=== PATIENT | female | born 1950 | race Caucasian/White ===

== ENCOUNTER 2020-05-15 15:26 | Inpatient (IN) | payer MEDICARE, BC ==
[~2020-05-15] VITALS: Ht 152.4 cm; Wt 111.3 kg
[2020-05-15 16:02] LABS: BASOPHILS # (AUTO) 0.1 X10'3 (0-0.2); BASOPHILS % (AUTO) 0.9 % (0-1); EOSINOPHILS # (AUTO) 0.2 X10'3 (0-0.9); EOSINOPHILS % (AUTO) 3.4 % (0-6); HEMATOCRIT 43.5 % (35.0-45.0); HEMOGLOBIN 14.9 g/dl (12.0-16.0); LYMPHOCYTES % (AUTO) 33.3 % (21-51); MEAN CORPUSCULAR HEMOGLOBIN 33.3 PG (27.0-31.0); MEAN CORPUSCULAR HGB CONC 34.2 g/dL (33.0-36.5); MEAN CORPUSCULAR VOLUME 97.4 FL (78-98); MEAN PLATELET VOLUME 7.2 FL (7.4-10.4); MONOCYTES # (AUTO) 0.5 X10'3 (0-0.9); MONOCYTES % (AUTO) 8.6 % (2-12); NEUTROPHILS # (AUTO) 3.2 X10'3 (1.8-7.7); NEUTROPHILS % (AUTO) 53.8 % (42-75); PLATELET COUNT 258 X10'3 (140-440); RED BLOOD COUNT 4.47 X10'6 (4.20-5.60); RED CELL DISTRIBUTION WIDTH 13.4 % (11.5-14.5); WHITE BLOOD COUNT 5.9 X10'3 (4.5-11.0)
[2020-05-15 16:15] LABS: PARTIAL THROMBOPLASTIN TIME 26 SECONDS (22-32)
[2020-05-15 16:17] LABS: ALANINE AMINOTRANSFERASE 28 U/L (12-78); ALBUMIN 3.7 G/DL (3.4-5.0); ALBUMIN/GLOBULIN RATIO 1.1 (1.1-1.5); ALKALINE PHOSPHATASE 104 IU/L (46-116); ANION GAP 3 (8-16); ASPARTATE AMINO TRANSFERASE 22 U/L (10-37); BILIRUBIN,TOTAL 0.8 MG/DL (0.1-1.0); BLOOD UREA NITROGEN 19 MG/DL (7-18); BUN/CREATININE RATIO 19.2 (6.6-38.0); CALCIUM 9.5 MG/DL (8.5-10.1); CHLORIDE 106 MMOL/L (99-107); CREATININE 0.99 MG/DL (0.40-0.90); GLUCOSE 112 MG/DL (70-104); SODIUM 140 MMOL/L (135-145); TOTAL CARBON DIOXIDE 30.7 MMOL/L (24-32); TOTAL PROTEIN 7.1 G/DL (6.4-8.2); eGFR 56 ML/MIN
[2020-05-15 16:22] LABS: TROPONIN I < 0.04 NG/ML (0.0-0.05)
[2020-05-15] MEDS ORDERED: atorvastatin 20mg tablet PO STA (18:40)
[2020-05-15] MEDS ORDERED: aspirin 81mg tab.chew PO ONE (18:40)
[2020-05-15] MEDS ORDERED: iohexol 350MG/ML 100ml bottle IV ONE (18:47)
[2020-05-15] MEDS ORDERED: NAPR220T67 PO (19:50)
[2020-05-15] MEDS ORDERED: SIMV-45 PO (19:50)
[2020-05-15] MEDS ORDERED: HYDR12.55 PO (19:50)
[2020-05-15] MEDS ORDERED: ATEN50TA8 PO (19:50)
[2020-05-15] MEDS ORDERED: IRBE300T18 PO (19:50)
[2020-05-15] MEDS ORDERED: ASPI-1265 PO (19:52)
[2020-05-15] MEDS ORDERED: GLUC-95 PO ×2 (19:55)
--- NOTE | 2020-05-15 19:56 | NUR ---
mary jay advised patietn of admission assessment patietn agrees to stay. family notified by patient spouse Bolivar [phone], 2 sons and brother.
[2020-05-15] MEDS ORDERED: temazepam 15mg capsule PO PRN (21:00)
[2020-05-15] MEDS ORDERED: losartan 50mg tablet PO SCH (21:00)
[2020-05-15] MEDS ORDERED: HYDROcodone/acetaminophen 5mg/325mg tablet PO PRN (21:40)
[2020-05-15] MEDS ORDERED: ondansetron/PF 4mg/2ml inj IV PRN (21:40)
[2020-05-15] MEDS ORDERED: morphine 2 MG/ML inj. syringe IV PRN (21:40)
[2020-05-15] MEDS ORDERED: acetaminophen 325mg tablet PO PRN ×2 (21:40)
[2020-05-15] MEDS ORDERED: non-formulary drug (Glucosamine HCl/Chondr Su A Na (Cidaflex Tablet) 1 TAB) PO SCH (22:55)
[2020-05-15] MEDS: normal saline 1000ml 1,000 ML IV SCH (23:52)
[2020-05-16] MEDS ORDERED: HYDROchlorothiazide 12.5mg capsule PO SCH (08:00)
[2020-05-16] MEDS ORDERED: GLUCOSAMINE HCL PO SCH (08:00)
[2020-05-16] MEDS ORDERED: atorvastatin 20mg tablet PO SCH (08:00)
[2020-05-16] MEDS ORDERED: heparin, porcine 5000 units/ml vial SQ SCH (08:00)
[2020-05-16] MEDS ORDERED: CHONDR SU A NA PO SCH (08:00)
[2020-05-16] MEDS ORDERED: aspirin 81mg tab.chew PO SCH (08:30)
--- NOTE | 2020-05-16 08:43 | NUR ---
Pt ate 75% of breakfast
[2020-05-16] MEDS ORDERED: clopidogrel 300mg tablet PO ONE (09:05)
[2020-05-16] MEDS: normal saline 1000ml 1,000 ML IV SCH (09:43)
[2020-05-16 10:02] LABS: BASOPHILS # (AUTO) 0.1 X10'3 (0-0.2); BASOPHILS % (AUTO) 0.7 % (0-1); EOSINOPHILS # (AUTO) 0.2 X10'3 (0-0.9); EOSINOPHILS % (AUTO) 2.6 % (0-6); HEMATOCRIT 45.8 % (35.0-45.0); HEMOGLOBIN 15.6 g/dl (12.0-16.0); LYMPHOCYTES # (AUTO) 1.9 X10'3 (1.1-4.8); LYMPHOCYTES % (AUTO) 25.4 % (21-51); MEAN CORPUSCULAR HEMOGLOBIN 33.4 PG (27.0-31.0); MEAN CORPUSCULAR VOLUME 98.2 FL (78-98); MEAN PLATELET VOLUME 8.2 FL (7.4-10.4); MONOCYTES # (AUTO) 0.5 X10'3 (0-0.9); NEUTROPHILS # (AUTO) 4.9 X10'3 (1.8-7.7); NEUTROPHILS % (AUTO) 64.3 % (42-75); PLATELET COUNT 274 X10'3 (140-440); RED BLOOD COUNT 4.67 X10'6 (4.20-5.60); RED CELL DISTRIBUTION WIDTH 13.4 % (11.5-14.5); WHITE BLOOD COUNT 7.6 X10'3 (4.5-11.0)
--- NOTE | 2020-05-16 10:20 | NUR ---
pt to CT
[2020-05-16 10:27] LABS: ALANINE AMINOTRANSFERASE 29 U/L (12-78); ALBUMIN 3.9 G/DL (3.4-5.0); ALBUMIN/GLOBULIN RATIO 1.1 (1.1-1.5); ALKALINE PHOSPHATASE 103 IU/L (46-116); ANION GAP 8 (8-16); ASPARTATE AMINO TRANSFERASE 28 U/L (10-37); BILIRUBIN,TOTAL 1.1 MG/DL (0.1-1.0); BLOOD UREA NITROGEN 14 MG/DL (7-18); BUN/CREATININE RATIO 13.7 (6.6-38.0); CALCIUM 9.3 MG/DL (8.5-10.1); CHLORIDE 106 MMOL/L (99-107); CHOL/HDL RATIO 2.8 (0.00-4.99); CHOLESTEROL 183 MG/DL (0-200); CREATININE 1.02 MG/DL (0.40-0.90); GLUCOSE 152 MG/DL (70-104); HDL CHOLESTEROL 66 MG/DL (35-60); LDL CHOLESTEROL 99 MG/DL (50-100); POTASSIUM 3.8 MMOL/L (3.5-5.1); SODIUM 143 MMOL/L (135-145); TOTAL CARBON DIOXIDE 28.7 MMOL/L (24-32); TOTAL PROTEIN 7.3 G/DL (6.4-8.2); TRIGLYCERIDES 102 MG/DL (20-135); eGFR 54 ML/MIN
--- NOTE | 2020-05-16 11:17 | NUR ---
Pt was unable to tolerate MRI due to claustrophobia. Dr. Burkett updated. Orders to give ativan for anxiety and attempt MRI again. Patient agreeable to try.
[2020-05-16] MEDS ORDERED: LORazepam 2 mg/ml vial IV ONE (11:20)
[2020-05-16] MEDS ORDERED: PRED25SO PO (18:42)
[2020-05-16] MEDS ORDERED: VALA100031 PO (18:42)
--- NOTE | 2020-05-16 19:33 | NUR ---
to floor via [facility] with RN
--- NOTE | 2020-05-16 19:59 | NUR ---
attempt to call Dr Burkett to clarify dc medications no return call back dc medication unable to be called into pharmacy at [facility] message left for [facility]
[2020-05-16 20:07] VITALS: BP 142/88
[2020-05-17] MEDS ORDERED: clopidogrel 75mg tablet PO SCH (08:00)
[2020-05-17] MEDS ORDERED: PRED25SO PO (08:16)
[2020-05-17] MEDS ORDERED: VALA100031 PO (08:16)
== END 2020-05-16 20:07 | disposition home or self-care (01) | DRG 74 ==
LOC: ER 15:26 → ED HOLD 21:39 → CANBEDREQ 05-16 18:48
PROVIDERS: ADMIT Internal Medicine; ATTEND Family Medicine
PROC: B3251ZZ Computerized Tomography (CT Scan) of Bilateral Common Carotid Arteries using Low Osmolar Contrast (ICD-10-PCS; principal; 2020-05-15)
PROC: B32G1ZZ Computerized Tomography (CT Scan) of Bilateral Vertebral Arteries using Low Osmolar Contrast (ICD-10-PCS; 2020-05-15)
PROC: B3281ZZ Computerized Tomography (CT Scan) of Bilateral Internal Carotid Arteries using Low Osmolar Contrast (ICD-10-PCS; 2020-05-15)
DX: G51.0 Bell's palsy (principal); Z68.42 Body mass index [BMI] 45.0-49.9, adult; E66.9 Obesity, unspecified; E78.5 Hyperlipidemia, unspecified; I10 Essential (primary) hypertension; I25.10 Atherosclerotic heart disease of native coronary artery without angina pectoris; K21.9 Gastro-esophageal reflux disease without esophagitis; Z90.710 Acquired absence of both cervix and uterus; Z79.899 Other long term (current) drug therapy; Z79.82 Long term (current) use of aspirin
CPT/HCPCS: 36415; 70450; 70496; 70498; 70551; 71045; 80053; 80061; 83036; 84484; 85025; 85610; 85730; 93005; 93306; 99285; G0378; J1644; J2060; J7030; Q9967